=== PATIENT | female | born 1990 | race Caucasian/White ===

== ENCOUNTER 2016-04-01 15:13 | Emergency (ER) | payer OTHER ==
--- NOTE | 2016-04-01 16:43 | ED NURSING NOTES ---
Clinical Report - Nurses [facility] [address] [place] [address] 04/01/2016 15:17 Patient: JOHN CHAUDHARI TRIAGE Triage time 1549 PM. Chief Complaint: BACK PAIN. --15:49 Eric Bravo R.N. 15:48 04/01/16. BP: 119/67. HR: 95. RR: 16. O2 saturation: 98%. Temp: 99.7 F (oral). Pain level now: 12/10. --15:49 Eric Bravo R.N. Weight: 108.8 kg stated. Height/Length: 67 inches Per Patient. BMI: 37.6. --15:47 Eric Bravo R.N. Medications Unknown. --18:36 Allyson Paris R.N. Allergies Penicillins. --18:36 Allyson Paris R.N. Latex. --18:36 Allyson Paris R.N. Bees. --18:36 Allyson Prais R.N. History Arrived by private vehicle. Historian: patient. Unaccompanied. --15:49 Eric Bravo R.N. PHYSICAL ASSESSMENT Ambulatory to room. GENERAL / NEURO / PSYCH: Alert. Oriented X 4. Appears in no acute distress. RESPIRATORY: Mild respiratory distress. Respirations not labored. Chest nontender. Breath sounds within normal limits. CVS: Normal heart rate and rhythm. Capillary refill less than 2 seconds. GI / : Abdomen soft and nontender. Bowel sounds within normal limits. EXTREMITIES: Sensation intact in extremities. ROM of extremities within normal limits. BACK: Normal inspection of the neck and back. No neck or back tenderness. ROM of neck and back within normal limits. --15:59 Eric Bravo R.N. NURSING PROGRESS NOTES ( Patient able to stand and ambulate to the restroom.). --15:49 Eric Bravo R.N. Reassurance given. GENERAL / NEURO / PSYCH: Alert. Oriented X 4. No sensory deficit. RESPIRATORY: No respiratory distress. Breath sounds normal. SKIN: Skin is warm and dry. Skin color within normal limits. Call light placed in reach. Side rails up x 2. Bed placed in lowest position. Brakes of bed on. --16:00 Eric Bravo R.N. [facility] Condition at departure: improved. The goals identified in the patient's plan of care were met. No learning barriers present. Discharge instructions provided and reviewed with the patient. Reviewed medication(s) side effects, precautions, dosing and course information. Prescription(s) given to the patient. Reviewed need for increased fluid intake. Patient verbalized understanding. Written instructions provided in Slovenian. The patient was discharged home and accompanied by family. She left the Emergency Department ambulatory and via private vehicle. Parent driving. FALL RISK ASSESSMENT: Fall risk assessment completed. No fall risk identified. --15:58 Eric Bravo R.N. --END STRIKE>> Charted On Wrong Patient --16:12 Eric Bravo R.N. <<STRICKEN ENTRY-- 15:57 04/01/16. BP: 107/61. HR: 70. RR: 16. O2 saturation: 97%. Temp: 98.3 F (oral). Pain level now: 06/10. --15:58 Eric Bravo R.N. --END STRIKE>> Charted on wrong patient. --16:13 Eric Bravo R.N. <<STRICKEN ENTRY-- Departure time: 1558 PM. --15:58 Eric Bravo R.N. --END STRIKE>> Charted On Wrong Patient --16:12 Eric Bravo R.N. Departure time: 16:45 Apr 01 2016. Condition at departure: improved and stable. No learning barriers present. Discharge instructions provided and reviewed with the patient. Patient verbalized understanding. Written instructions provided in Slovenian. The patient was discharged by the physician him assistant. She was discharged home. She left the Emergency Department ambulatory and via bus. --18:33 Allyson Paris R.N. Locked/Released at 04/01/2016 18:37 by Allyson Paris R.N.
--- NOTE | 2016-04-01 16:43 | ED ORDER SUMMARY ---
..... Patient: JOHN CHAUDHARI OrderSheet [facility] VisitID: [id number] [address] [place] [address] 25y, F Registration Date/Time: 04/01/2016 ORDER SHEET Weight: 108.8 kg (stated) Allergies: Penicillins, Latex, Bees GENERAL ORDERS: UA-Culture if indicated Urgent (15:50 04/01/2016 Ada P.A.-C) (Ack 15:54 LTapper) (16:46 MWinterer R.N.) Urine Urgent (15:50 04/01/2016 Ada Rodriguez.A.-C) (Ack 15:54 LTapper) (16:46 MWinterer R.N.) MEDICATION ORDERS: IV FLUIDS: ORDER SHEET NOTES: [Electronically signed by Toyin Romano P.A.-C (17:58 04/01/2016)] [Electronically signed by Allyson Paris R.N. (18:37 04/01/2016)] [Electronically locked/signed by Allyson Paris R.N. (18:37 04/01/2016)]
--- NOTE | 2016-04-01 16:43 | ED CLINICAL REPORT ---
Clinical Report - Physicians/Mid Levels [facility] [address] [place] [address] 04/01/2016 15:17 Patient: JOHN CHAUDHARI Time Seen: 16:19 Apr 01 2016. Arrived- By private vehicle. Historian- patient. HISTORY OF PRESENT ILLNESS Chief Complaint: back pain. This started months. (25-year-old female, arrives by POV, from [place], was recently seen in the emergency department in [place], presents with "spine pain", hemeatemesis, full pain. patient reports no recent trauma or fall. This is an ongoing chronic issue, with worsening of pain currently, time she takes Motrin 4/, when she remembers, patient reports suffering a head injury, for which she has had difficulty with memory. In addition she reports history of meningitis at the age of 4. Patient has seen her primary care provider recently over the last 7 days. In addition she was seen in the emergency department on the .). REVIEW OF SYSTEMS No diarrhea. All systems otherwise negative, except as recorded above. ADDITIONAL NOTES The nursing notes have been reviewed. PHYSICAL EXAM Vital Signs: 04/01/2016 15:48 BP: 119/67. HR: 95. RR: 16. O2 saturation: 98%. Temp: 99.7 F. Pain level now: 10/10. Appearance: Alert. Eyes: Eyes normal inspection. ENT: Nose normal. Pharynx normal. Neck: Normal inspection. CVS: Normal heart rate and rhythm. Heart sounds normal. Respiratory: No respiratory distress. No respiratory distress. Breath sounds normal. Chest nontender. No accessory muscle use or decreased air movement. Abdomen: No visible injury. Soft. Bowel sounds normal. No abdominal tenderness. Back: Normal inspection. No CVA tenderness. Skin: Normal skin color. Neuro: Oriented X 3. No motor deficit. LABS, X-RAYS, AND EKG Laboratory Tests: UA-Culture if indicated: (ANGELICA: 04/01/2016 15:50) ( MsgRcvd 04/01/2016 16:36) Final results Test Result Flag Units (Reference) URINE COLOR YELLOW URINE APPEARANCE CLEAR URINE GLUCOSE NEGATIVE (NEGATIVE) URINE BILIRUBIN NEGATIVE (NEGATIVE) URINE KETONE NEGATIVE (NEGATIVE) URINE SPECIFIC GRAVITY >= 1.030 (1.010-1.030) URINE PH 5.5 (5.0-8.0) URINE PROTEIN 1+ (NEGATIVE) URINE UROBILINOGEN 0.2 EU/dL (0.2-1.0) URINE NITRITE NEGATIVE (NEGATIVE) URINE BLOOD NEGATIVE (NEGATIVE) URINE LEUK ESTERASE NEGATIVE (NEGATIVE) URINE RBC 0-1 rbc/hpf (0-1) URINE WBC 1-3 wbc/hpf (0-1) URINE EPITHELIAL CELLS 5-10 EPI/hpf (0-5) URINE BACTERIA MODERATE (2+ TO 3+) (NONE SEEN) URINE COMMENT CULTURE INDICATED 2+ MUCUSURINE CULTURES ARE SET-UP BASED ON THE FOLLOWING CRITERIA:POSITIVE NITRITEPOSITIVE LEUKOCYTE ESTERASEGREATER THAN 10 WHITE BLOOD CELLSMODERATE (2+) OR GREATER BACTERIA Urine: (ANGELICA: 04/01/2016 15:50) ( MsgRcvd 04/01/2016 16:23) Final results Test Result Flag Units (Reference) URINE NEGATIVE . PROGRESS AND PROCEDURES Course of Care: After many multiple vague complaints, after all patient is very able to ambulate, records reviewed from recent [facility]'s visit, where she had x-aris well as lab workup which was unremarkable, patient urged to follow up with her primary care provider, ambulated to the bus station. There are no risks for spinal epidural abscess or hematoma as patient is without any risk factors such as IVDA or evidence of active infection, no midline tenderness to percussion. Hence I do not feel emergent imaging with an MRI is indicated. However I did discuss with the patient that if these symptoms develop, or if the pain does not resolve an MRI may need to be done outpatient, or in the ED if symptoms worsen acutely or new onset of the above mentioned symptoms develop. 04/01/2016 15:48 BP: 119/67. HR: 95. RR: 16. O2 saturation: 98%. Temp: 99.7 F. Pain level now: 12/10. Patient is stable. Symptoms better. Patient/family counseled. Disposition: Discharged. CLINICAL IMPRESSION Chronic nontraumatic back pain. INSTRUCTIONS (ice motirn tylenol). (Electronically signed by Toyin Romano P.A.-C 04/01/2016 17:58)
--- NOTE | 2016-04-01 16:43 | ED ORDER SUMMARY ---
..... Patient: JOHN CHAUDHARI OrderSheet [facility] VisitID: [id number] [address] [place] [address] 25y, F Registration Date/Time: 04/01/2016 ORDER SHEET Weight: 108.8 kg (stated) Allergies: Penicillins, Latex, Bees GENERAL ORDERS: UA-Culture if indicated Urgent (15:50 04/01/2016 Ada P.A.-C) (Ack 15:54 LTapper) (16:46 MWinterer R.N.) Urine Urgent (15:50 04/01/2016 Ada Rodriguez.A.-C) (Ack 15:54 LTapper) (16:46 MWinterer R.N.) MEDICATION ORDERS: IV FLUIDS: ORDER SHEET NOTES: [Electronically signed by Toyin Romano P.A.-C (17:58 04/01/2016)] [Electronically signed by Allyson Paris R.N. (18:37 04/01/2016)] [Electronically locked/signed by Allyson Paris R.N. (18:37 04/01/2016)]
--- NOTE | 2016-04-01 16:43 | ED NURSING NOTES ---
Clinical Report - Nurses [facility] [address] [place] [address] 04/01/2016 15:17 Patient: JOHN CHAUDHARI TRIAGE Triage time 1549 PM. Chief Complaint: BACK PAIN. --15:49 Eric Bravo R.N. 15:48 04/01/16. BP: 119/67. HR: 95. RR: 16. O2 saturation: 98%. Temp: 99.7 F (oral). Pain level now: 12/10. --15:49 Eric Bravo R.N. Weight: 108.8 kg stated. Height/Length: 67 inches Per Patient. BMI: 37.6. --15:47 Eric Bravo R.N. Medications Unknown. --18:36 Allyson Paris R.N. Allergies Penicillins. --18:36 Allyson Paris R.N. Latex. --18:36 Allyson Paris R.N. Bees. --18:36 Allyson Paris R.N. History Arrived by private vehicle. Historian: patient. Unaccompanied. --15:49 Eric Bravo R.N. PHYSICAL ASSESSMENT Ambulatory to room. GENERAL / NEURO / PSYCH: Alert. Oriented X 4. Appears in no acute distress. RESPIRATORY: Mild respiratory distress. Respirations not labored. Chest nontender. Breath sounds within normal limits. CVS: Normal heart rate and rhythm. Capillary refill less than 2 seconds. GI / : Abdomen soft and nontender. Bowel sounds within normal limits. EXTREMITIES: Sensation intact in extremities. ROM of extremities within normal limits. BACK: Normal inspection of the neck and back. No neck or back tenderness. ROM of neck and back within normal limits. --15:59 Eric Bravo R.N. NURSING PROGRESS NOTES ( Patient able to stand and ambulate to the restroom.). --15:49 Eric Bravo R.N. Reassurance given. GENERAL / NEURO / PSYCH: Alert. Oriented X 4. No sensory deficit. RESPIRATORY: No respiratory distress. Breath sounds normal. SKIN: Skin is warm and dry. Skin color within normal limits. Call light placed in reach. Side rails up x 2. Bed placed in lowest position. Brakes of bed on. --16:00 Eric Bravo R.N. [facility] Condition at departure: improved. The goals identified in the patient's plan of care were met. No learning barriers present. Discharge instructions provided and reviewed with the patient. Reviewed medication(s) side effects, precautions, dosing and course information. Prescription(s) given to the patient. Reviewed need for increased fluid intake. Patient verbalized understanding. Written instructions provided in Finnish. The patient was discharged home and accompanied by family. She left the Emergency Department ambulatory and via private vehicle. Parent driving. FALL RISK ASSESSMENT: Fall risk assessment completed. No fall risk identified. --15:58 Eric Bravo R.N. --END STRIKE>> Charted On Wrong Patient --16:12 Eric Bravo R.N. <<STRICKEN ENTRY-- 15:57 04/01/16. BP: 107/61. HR: 70. RR: 16. O2 saturation: 97%. Temp: 98.3 F (oral). Pain level now: 06/10. --15:58 Eric Bravo R.N. --END STRIKE>> Charted on wrong patient. --16:13 Eric Bravo R.N. <<STRICKEN ENTRY-- Departure time: 1558 PM. --15:58 Eric Bravo R.N. --END STRIKE>> Charted On Wrong Patient --16:12 Eric Bravo R.N. Departure time: 16:45 Apr 01 2016. Condition at departure: improved and stable. No learning barriers present. Discharge instructions provided and reviewed with the patient. Patient verbalized understanding. Written instructions provided in Finnish. The patient was discharged by the physician human resources office assistant. She was discharged home. She left the Emergency Department ambulatory and via bus. --18:33 Allyson Paris R.N. Locked/Released at 04/01/2016 18:37 by Allyson Paris R.N.
--- NOTE | 2016-04-01 18:37 | ED MAR SUMMARY ---
..... Medication Administration Record [facility] [address] [place], [place] [id number] Patient: JOHN CHAUDHARI Visit ID: [id number] 25y, F Weight: 108.8 kg Height/Length: 67 in BMI: 37.6 ALLERGIES: Bees, Latex, Penicillins
--- NOTE | 2016-04-01 18:37 | ED DISCHARGE INSTRUCTIONS ---
Patient: JOHN CHAUDHARI General Instructions [facility] VisitID: [id number] [place] [address] 25y, F Registration Date/Time: 04/01/2016 Chronic nontraumatic back pain. INSTRUCTIONS (ice motirn tylenol). ADDITIONAL INFORMATION Back Pain [Acute Or Chronic] Back pain is usually caused by an injury to the muscles or ligaments of the spine. Sometimes the disks that separate each bone in the spine may bulge and cause pain by pressing on a nearby nerve. Back pain may also appear after a sudden twisting/bending force (such as in a car accident), after a simple awkward movement, or lifting something heavy with poor body positioning. In either case, muscle spasm is often present and adds to the pain. Acute back pain usually gets better in one to two weeks. Back pain related to disk disease, arthritis in the spinal joints or spinal stenosis (narrowing of the spinal canal) can become chronic and last for months or years. Unless you had a physical injury (for example, a car accident or fall) X-rays are usually not ordered for the initial evaluation of back pain. If pain continues and does not respond to medical treatment, x-rays and other tests may be performed at a later time. Home Care: You may need to stay in bed the first few days. But, as soon as possible, begin sitting or walking to avoid problems with prolonged bed rest (muscle weakness, worsening back stiffness and pain, blood clots in the legs). When in bed, try to find a position of comfort. A firm mattress is best. Try lying flat on your back with pillows under your knees. You can also try lying on your side with your knees bent up towards your chest and a pillow between your knees. Avoid prolonged sitting. This puts more stress on the lower back than standing or walking. During the first two days after injury, apply an ICE PACK to the painful area for 20 minutes every 2-4 hours. This will reduce swelling and pain. HEAT (hot shower, hot bath or heating pad) works well for muscle spasm. You can start with ice, then switch to heat after two days. Some patients feel best alternating ice and heat treatments. Use the one method that feels the best to you. You may use acetaminophen (Tylenol) or ibuprofen (Motrin, Advil) to control pain, unless another pain medicine was prescribed. [NOTE: If you have chronic liver or kidney disease or ever had a stomach ulcer or GI bleeding, talk with your doctor before using these medicines.] Be aware of safe lifting methods and do not lift anything over 15 pounds until all the pain is gone. Follow Up with your doctor or this facility if your symptoms do not start to improve after one week. Physical therapy may be needed. [NOTE: If X-rays were taken, they will be reviewed by a radiologist. You will be notified of any new findings that may affect your care.] Get Prompt Medical Attention if any of the following occur: Pain becomes worse or spreads to your legs Weakness or numbness in one or both legs Loss of bowel or bladder control Numbness in the groin or genital area You have been given the following additional information: Back Pain (Acute Or Chronic) (Electronically signed by Toyin Romano P.A.-C 04/01/2016 17:58)
--- NOTE | 2016-04-01 18:37 | ED MED RECONCILIATION SUMMARY ---
Patient: JOHN CHAUDHARI Medication Reconciliation Report [facility] VisitID: [id number] [address] [place] [address] 25y, F Registration Date/Time: 04/01/2016 Weight: 108.8 kg Height/Length: 67 in. BMI: 37.6 ALLERGIES: Bees, Latex, Penicillins The patient's Home Medications are listed below: Unknown. The source(s) of the original Home Medication information: Not obtained. The following Medications were given to the patient in the Emergency Department: None. The following Medications were prescribed to the patient: None.
--- NOTE | 2016-04-01 18:37 | ED MAR SUMMARY ---
..... Medication Administration Record [facility] [address] [place], [place] [id number] Patient: JOHN HCAUDHARI Visit ID: [id number] 25y, F Weight: 108.8 kg Height/Length: 67 in BMI: 37.6 ALLERGIES: Bees, Latex, Penicillins
--- NOTE | 2016-04-01 18:37 | ED MED RECONCILIATION SUMMARY ---
Patient: JOHN CHAUDHARI Medication Reconciliation Report [facility] VisitID: [id number] [address] [place] [address] 25y, F Registration Date/Time: 04/01/2016 Weight: 108.8 kg Height/Length: 67 in. BMI: 37.6 ALLERGIES: Bees, Latex, Penicillins The patient's Home Medications are listed below: Unknown. The source(s) of the original Home Medication information: Not obtained. The following Medications were given to the patient in the Emergency Department: None. The following Medications were prescribed to the patient: None.
== END 2016-04-01 16:45 | disposition home or self-care (01) ==
LOC: ED SRH 15:13
DX: M54.9 Dorsalgia, unspecified (principal); G89.29 Other chronic pain; Z88.0 Allergy status to penicillin
CPT/HCPCS: 90004; 90469; 93070